=== PATIENT | female | born 1945 | race Hispanic/Latino ===

== ENCOUNTER 2021-12-21 14:00 | Outpatient (CLI) | payer MEDICARE ==
--- NOTE | 2021-12-21 14:50 | XRay Report ---
LEFT KNEE 4 VIEWS INDICATION / CLINICAL INFORMATION: BURSITIS OF THE LEFT KNEE M70.52. COMPARISON: None available. FINDINGS: BONES / JOINT(S): There are mild degenerative changes involving the patellofemoral joint with a small erosion involving the dorsal patella superiorly. There is a small to moderate suprapatellar joint ef fusion. I see no evidence of fracture, subluxation or destructive lesion. SOFT TISSUES: No significant abnormality. ADDITIONAL FINDINGS: None. Signer Name: Sterling Campbell MD Signed: 12/21/2021 2:45 PM Workstation Name: [id number]
== END 2021-12-21 14:01 | disposition home or self-care (01) ==
LOC: XRAY 14:00
PROVIDERS: ATTEND Internal Medicine
DX: M17.12 Unilateral primary osteoarthritis, left knee (principal); M25.462 Effusion, left knee; M70.52 Other bursitis of knee, left knee